=== PATIENT | female | born 1955 | race Caucasian/White ===

== ENCOUNTER 2017-02-19 09:37 | Emergency (ER) | payer OTHER ==
[2017-02-19 09:46] VITALS: TEMP 98; BMI 22.7
--- NOTE | 2017-02-19 10:04 | PDOC ---
History of Present Illness - General History Source: Patient Exam Limitations: No Limitations - History of Present Illness Initial Comments: 02/19/17 11:42 The patient is a 61 year old female, with significant past medical history of Afib (noncompliant with Xarelto), HTN (noncompliant with Lopressor over the past week), and alcohol abuse, who presents to the emergency room with palpitations and tremors s/p drinking the past 3 days. She reports drinking 1/ 5th of a bottle of vodka daily for the last 3 days. Her last drink was last night. She reports that she usually has 4 shots of vodka a day for the past 10 years, but really over did it the past 3 days because of increased family stress. This morning she took a dose of xarelto to see if it would help with the palpitations. She is not compliant with her lopressor because she did not pickling grader her refill at the pharmacy. Has no hx of hospitalizations for etoh withdrawal. Denies chest pain, cough, SOB. Denies LOC. Denies fever, chills, nausea, vomiting. PCP: Dr. Taryn Farmer Middleware Administrator: Dr. Martínez <Irais Mahmood - Last Filed: 02/19/17 12:50> <Alejandro Smith - Last Filed: 02/19/17 20:26> - General Chief Complaint: Tremors Stated Complaint: PALPITATIONS, (POSSIBLE INTOX) Time Seen by Provider: 02/19/17 09:52 Past History <Irais Mahmood - Last Filed: 02/19/17 12:50> - Past Medical History Anemia: No Asthma: No Cancer: No Cardiac Disorders: No CVA: No COPD: No Dementia: No Diabetes: No Dialysis: No GI Disorders: No Disorders: No HTN: Yes Hypercholesterolemia: No Kidney Stones: No Liver Disease: No Psychiatric Problems: Yes (depression) Seizures: No Thyroid Disease: No - Surgical History Abdominal Surgery: No Appendectomy: No Cardiac Surgery: No Cholecystectomy: No Lung Surgery: No Neurologic Surgery: No - Immunization History Td Vaccination: Yes TDAP Vaccination: No Immunization Up to Date: Yes - Suicide/Smoking/Psychosocial Hx Smoking Status: No Smoking History: Never smoked Years of Tobacco Use: 0 Number of Cigarettes Smoked Daily: 0 Cigars Per Day: 0 Hx Alcohol Use: Yes (DAILY VODKA) Drug/Substance Use Hx: No Substance Use Type: Alcohol <Alejandro Smith - Last Filed: 02/19/17 20:26> - Past Medical History Allergies/Adverse Reactions: Allergies Allergy/AdvReac Type Severity Reaction Status Date / Time No Known Allergies Allergy Verified 02/19/17 09:45 Home Medications: Ambulatory Orders Citalopram Hydrobromide [Celexa -] 40 mg PO DAILY 12/04/12 Metoprolol Tartrate [Lopressor -] 100 mg PO BID 12/04/12 Chlorthalidone 25 mg PO DAILY 02/19/16 Losartan Potassium [Cozaar] 100 mg PO DAILY 02/19/16 Review of Systems - Review of Systems Able to Perform ROS?: Yes Comments:: 02/19/17 11:42 GENERAL/CONSTITUTIONAL: No fever or chills. No weakness. HEAD, EYES, EARS, NOSE AND THROAT: No change in vision. No ear pain or discharge. No sore throat. GASTROINTESTINAL: No nausea, vomiting, diarrhea or constipation. GENITOURINARY: No dysuria, frequency, or change in urination. CARDIOVASCULAR: +palpitations. No chest pain or shortness of breath. RESPIRATORY: No cough, wheezing, or hemoptysis. MUSCULOSKELETAL: No joint or muscle swelling or pain. No neck or back pain. SKIN: No rash NEUROLOGIC: +tremors. No headache, vertigo, loss of consciousness, or change in strength/sensation. ENDOCRINE: No increased thirst. No abnormal weight change. HEMATOLOGIC/LYMPHATIC: No anemia, easy bleeding, or history of blood clots. ALLERGIC/IMMUNOLOGIC: No hives or skin allergy. <Irais Mahmood - Last Filed: 02/19/17 12:50> *Physical Exam - Vital Signs Last Vital Signs Temp Pulse Resp BP Pulse Ox 98.0 F 100 H 18 174/129 100 02/19/17 09:39 02/19/17 11:06 02/19/17 11:06 02/19/17 11:06 02/19/17 11:06 - Physical Exam Comments: 02/19/17 11:43 GENERAL: Awake, alert, and fully oriented, in no acute distress, +tremulous HEAD: No signs of trauma EYES: PERRLA, EOMI, sclera anicteric, conjunctiva clear ENT: Auricles normal inspection, hearing grossly normal, nares patent, oropharynx clear without exudates. Moist mucosa + tongue fasiculations NECK: Normal ROM, supple, no lymphadenopathy, JVD, or masses LUNGS: Breath sounds equal, clear to auscultation bilaterally. No wheezes, and no crackles HEART: +Irregularly irregular, tachy to 140, normal S1 and S2, no murmurs, rubs or gallops ABDOMEN: Soft, nontender, normoactive bowel sounds. No guarding, no rebound. No masses EXTREMITIES: Normal range of motion, no edema. No clubbing or cyanosis. No cords, erythema, or tenderness BACK: No midline spinal tendernes in cervial/throacic/lumbar region NEUROLOGICAL: Normal speech, cranial nerves intact, negative pronator drift, 5/ 5 strength in all 4 extremities, normal sensation to light touch in all 4 extremities, normal cerebellar exam, normal gait, normal reflexes and tone SKIN: Warm, Dry, normal turgor, no rashes or lesions noted. <Irais Mahmood - Last Filed: 02/19/17 12:50> - Vital Signs Last Vital Signs Temp Pulse Resp BP Pulse Ox 98.0 F 137 H 20 161/128 100 02/19/17 09:39 02/19/17 09:39 02/19/17 09:39 02/19/17 09:39 02/19/17 09:39 <Alejandro Smith - Last Filed: 02/19/17 20:26> Heart Score/ECG Review #1 02/19/17 20:19 EKG 1: Afib, rate 141, normal axis, 1mm GENARO in AVR likely rate dependent 02/19/17 20:20 EKG 2: Afib, rate 81, normal axis, no GENARO or TWI <Alejandro Smith - Last Filed: 02/19/17 20:26> ED Treatment Course - LABORATORY CBC & Chemistry Diagram: 02/19/17 10:30 02/19/17 10:05 - ADDITIONAL ORDERS Additional order review: Laboratory Results 02/19/17 02/19/17 02/19/17 10:30 10:19 10:05 PT with INR 13.00 H INR 1.18 H PTT (Actin FS) 36.3 H D Sodium 136 Potassium 4.3 D Chloride 100 Carbon Dioxide 27 Anion Gap 9 BUN 10 D Creatinine 0.6 Creat Clearance w eGFR > 60 Random Glucose 103 D Calcium 9.5 D Magnesium 1.1 L D Total Bilirubin 1.5 H AST 38 H ALT 42 Alkaline Phosphatase 77 Troponin I < 0.02 B-Natriuretic Peptide 2479.21 H Total Protein 7.8 Albumin 4.2 Lipase 116 TSH 3.60 D 02/19/17 10:30 RBC 5.26 H MCV 91.6 MCHC 33.9 RDW 12.7 MPV 7.1 L Neutrophils % 73.8 Lymphocytes % 17.0 Monocytes % 7.7 Eosinophils % 0.8 D Basophils % 0.7 - RADIOLOGY Radiograph Interpretation: 02/19/17 11:53 EXAM#: TYPE/EXAM: RESULT: [id number] RAD/CHEST X-RAY PORTABLE* Chest: Palpitations. Since 02/19/2016 at 0830 hours, the patient is in an apical lordotic projection with clear lungs, normal mediastinum and sharp angles. Soft tissues are intact and there are some degenerative changes. There is no sign of a pneumoperitoneum. Incidental note is made of possible old trauma involving the right ninth rib in the axillary line. Impression: No acute chest pathology. Possible old right rib trauma. Reported By: Marek Boo MD 02/19/17 1131 - Medications Given in the ED: ED Medications Discontinued Medications Generic Name Dose Route Start Last Admin Trade Name Freq PRN Reason Stop Dose Admin Chlordiazepoxide HCl 25 mg 02/19/17 10:06 02/19/17 10:39 Librium - PO 02/19/17 10:07 25 mg ONCE ONE Administration Metoprolol Tartrate 5 mg 02/19/17 10:06 02/19/17 10:39 Lopressor Injection - IVPUSH 02/19/17 10:07 5 mg ONCE ONE Administration Metoprolol Tartrate 100 mg 02/19/17 11:15 02/19/17 11:25 Lopressor - PO 02/19/17 11:16 100 mg ONCE ONE Administration <Irais Mahmood - Last Filed: 02/19/17 12:50> - LABORATORY CBC & Chemistry Diagram: 02/19/17 10:30 02/19/17 10:05 <Alejandro Smith - Last Filed: 02/19/17 20:26> Medical Decision Making - Medical Decision Making 02/19/17 12:50 Dr. Farmer was paged at the office at 12:51pm. Awaiting call back. <Irais Mahmood - Last Filed: 02/19/17 12:50> - Critical Care Time Total Critical Care Time (minutes): 30 Critical Care Statement: The care of this patient involved high complexity decision making to prevent further life threatening deterioration of the patient 's condition and/or to evaluate & treat vital organ system(s) failure or risk of failure. - Medical Decision Making 02/19/17 12:52 61yo F hx HTN, AF on zarelto p/w palpitations and tremors since yesterday. HR initially 140s in AF w RVR and hypertensive due to med non-compliance. 02/19/17 17:[address] Farmer <Alejandro Smith - Last Filed: 02/19/17 20:26> *DC/Admit/Observation/Transfer - Attestations Scribe Attestion: 02/19/17 11:43 Documentation prepared by ELLIS Gates, acting as medical clerk for Alejandro Smith MD. <Irais Mahmood - Last Filed: 02/19/17 12:50> - Discharge Dispostion Admit: No - Attestations Physician Attestion: 02/19/17 16:59 I, Dr. Alejandro Smith MD, attest that this document has been prepared under my direction and personally reviewed by me in its entirety. I further attest, that it accurately reflects all work, treatment, procedures and medical decision -making performed by me. <Alejandro Smith - Last Filed: 02/19/17 20:26> Diagnosis at time of Disposition: Atrial fibrillation with RVR - Referrals Referrals: Taryn Farmer MD [Primary Care Provider] - - Patient Instructions Printed Discharge Instructions: DI for Alcohol Abuse Additional Instructions: Please pickling grader your medications from the pharmacy and take them as prescribed. Dr. Farmer will be calling you tonight to check in on you. She also expects you in the office this Friday02/21/17. Try to cut down on drinking alcohol. Return to the emergency department immediately if you have any new, worsening, or concerning symptoms.
[2017-02-19] MEDS ORDERED: chlordiazePOXIDE HCL 25 MG CAPSULE PO ONE (10:06)
[2017-02-19] MEDS ORDERED: METOPROLOL TARTRATE 5 MG/5 ML VIAL IVPUSH ONE (10:06)
[2017-02-19] MEDS ORDERED: METOPROLOL TARTRATE 5 MG/5 ML VIAL ONE (10:22)
[2017-02-19] MEDS ORDERED: chlordiazePOXIDE HCL 25 MG CAPSULE ONE (10:22)
[2017-02-19 10:42] LABS: BASOPHIL 0.7 % (0-2.0); EOSINOPHIL 0.8 % (0-4.5); MCH 31.1 pg (25.7-33.7); MCHC 33.9 g/dl (32.0-36.0); MEAN CELL VOLUME 91.6 fl (80-96); MEAN PLT VOLUME 7.1 fl (7.5-11.1); NEUTROPHILS 73.8 % (42.8-82.8); PLATELET COUNT 291 K/MM3 (134-434); RDW 12.7 % (11.6-15.6); WHITE BLOOD COUNT 11.4 K/mm3 (4.0-10.0)
[2017-02-19 11:00] LABS: INR 1.18 (0.82-1.09)
[2017-02-19 11:02] LABS: ACTIVATED PTT 36.3 SECONDS (26.9-34.4)
[2017-02-19] MEDS ORDERED: METOPROLOL TARTRATE 50 MG TABLET (FP) PO ONE (11:15)
[2017-02-19] MEDS ORDERED: METOPROLOL TARTRATE 50 MG TABLET (FP) ONE (11:23)
[2017-02-19 11:26] LABS: ALBUMIN 4.2 g/dl (3.4-5.0); ANION GAP 9 (8-16); BILIRUBIN,TOTAL 1.5 mg/dL (0.2-1.0); CALCIUM 9.5 mg/dL (8.5-10.1); CO2 27 mmol/L (21-32); CREATININE 0.6 mg/dL (0.55-1.02); GLUCOSE,RANDOM 103 mg/dL (74-106); SGPT/ALT 42 U/L (12-78); TOT PROT 7.8 g/dl (6.4-8.2)
[2017-02-19 11:35] LABS: ALK PHOS 77 U/L (45-117); TROPONIN I < 0.02 ng/ml (0.00-0.05)
[2017-02-19 11:36] LABS: MAGNESIUM 1.1 mg/dL (1.8-2.4)
[2017-02-19 11:37] LABS: SGOT/AST 38 U/L (15-37)
--- NOTE | 2017-02-19 12:13 | EKG ---
Test Reason : Blood Pressure : / mmHG Vent. Rate : 141 BPM Atrial Rate : 156 BPM P-R Int : 000 ms QRS Dur : 072 ms QT Int : 298 ms P-R-T Axes : 000 033 066 degrees QTc Int : 456 ms ATRIAL FIBRILLATION WITH RAPID VENTRICULAR RESPONSE MARKED ST ABNORMALITY, POSSIBLE INFERIOR SUBENDOCARDIAL INJURY ABNORMAL ECG WHEN COMPARED WITH ECG OF 20-FEB-2016 10:53, ATRIAL FIBRILLATION HAS REPLACED SINUS RHYTHM VENT. RATE HAS INCREASED BY [address] NOW DEPRESSED IN INFERIOR LEADS ST NOW DEPRESSED IN ANTEROLATERAL LEADS T WAVE INVERSION NOW EVIDENT IN LATERAL LEADS Confirmed by NIRU FOX MD ([id number]) on 02/19/2017 12:12:48 PM Referred By: Confirmed By:NIRU FOX MD
[2017-02-19 12:22] LABS: URINE APPEARANCE CLEAR; URINE BILIRUBIN NEGATIVE (NEGATIVE); URINE BLOOD 1+ (NEGATIVE); URINE COLOR STRAW; URINE GLUCOSE (UA) NEGATIVE (NEGATIVE); URINE KETONE TRACE (NEGATIVE); URINE LEUK ESTERASE NEGATIVE (NEGATIVE); URINE NITRITE NEGATIVE (NEGATIVE); URINE PROTEIN NEGATIVE (NEGATIVE); URINE UROBILINOGEN NEGATIVE mg/dL (0.2-1.0)
[2017-02-19 12:31] LABS: URINE RBC <1 /hpf (0-3); URINE WBC 1 /hpf (3-5)
[2017-02-19] MEDS ORDERED: LOSARTAN POTASSIUM 50 MG TABLET (FP) PO ONE (12:49)
[2017-02-19] MEDS ORDERED: LOSARTAN POTASSIUM 25 MG TABLET ONE (13:09)
[2017-02-19] MEDS ORDERED: MAGNESIUM SULF 50% (8.12 MEQ/2 ML-1 GM VIAL) IVPB ONE (15:15)
[2017-02-19] MEDS ORDERED: MAGNESIUM SULF 50% (8.12 MEQ/2 ML-1 GM VIAL) ONE (15:27)
[2017-02-19 17:11] VITALS: BP 147/90; PULSE 73
== END 2017-02-19 17:28 | disposition home or self-care (01) ==
LOC: JER 09:37
PROC: 3E033GC Introduction of Other Therapeutic Substance into Peripheral Vein, Percutaneous Approach (ICD-10-PCS; principal; 2017-02-19)
DX: I48.91 Unspecified atrial fibrillation (principal); Z79.01 Long term (current) use of anticoagulants; I10 Essential (primary) hypertension; F32.9 Major depressive disorder, single episode, unspecified
CPT/HCPCS: 36415; 71010-TC; 80053; 81003; 81015; 83690; 83735; 83880; 84443; 84484; 85025; 85610; 85730; 87086; 93005; 93010; 99284-25

== ENCOUNTER 2018-04-18 22:45 | Emergency (ER) | payer OTHER ==
[2018-04-18 23:12] VITALS: BP 125/68; PULSE 79; TEMP 99.1; BMI 22.5
--- NOTE | 2018-04-18 23:15 | PDOC ---
History of Present Illness <Fiorella Padilla - Last Filed: 04/19/18 00:38> - General History Source: Patient Exam Limitations: No Limitations - History of Present Illness Initial Comments: 04/19/18 00:10 62 F with a hx of asthma (hx of intubation 20 years ago), afib (on xarelto), and HTN presents to the emergency department with SOB for the past 4 days. Per the patient, she states she has been using her ventolin more frequently (3x/day 2 pumps each administration). She states that she has been having worsening SOB , but denies chest pain, diaphoresis, chest pain with exertion, and nausea/ vomiting. Her SOB does worsen with weather changes. Prior to arrival, she was at a green party and endorses alcohol drinking and exposure to noxious perfume smells that have a hx of triggering an asthma exacerbation. Denies the following: fever , chills, visual changes, abdominal pain, dysuria, hematuria, diarrhea, melena, hematochezia, and leg pain/swelling. PMD: Dr. Farmer <Deny Alanis - Last Filed: 04/20/18 06:28> - General Chief Complaint: Shortness of Breath Stated Complaint: DIFFICULTY BREATHING Time Seen by Provider: 04/18/18 23:15 Past History <Fiorella Padilla - Last Filed: 04/19/18 00:38> - Past Medical History Anemia: No Asthma: No Cancer: No Cardiac Disorders: Yes (atrial fibrillation) CVA: No COPD: No Dementia: No Diabetes: No Dialysis: No GI Disorders: No Disorders: No HTN: Yes Hypercholesterolemia: No Kidney Stones: No Liver Disease: No Psychiatric Problems: Yes (depression) Seizures: No Thyroid Disease: No - Surgical History Abdominal Surgery: No Appendectomy: No Cardiac Surgery: No Cholecystectomy: No Lung Surgery: No Neurologic Surgery: No - Immunization History Td Vaccination: Yes TDAP Vaccination: No Immunization Up to Date: Yes - Suicide/Smoking/Psychosocial Hx Smoking Status: No Smoking History: Never smoked Years of Tobacco Use: 0 Number of Cigarettes Smoked Daily: 0 Cigars Per Day: 0 Hx Alcohol Use: Yes Drug/Substance Use Hx: No Substance Use Type: Alcohol <Deny Alanis - Last Filed: 04/20/18 06:28> - Past Medical History Allergies/Adverse Reactions: Allergies Allergy/AdvReac Type Severity Reaction Status Date / Time No Known Allergies Allergy Verified 04/18/18 22:56 Home Medications: Ambulatory Orders Citalopram Hydrobromide [Celexa -] 40 mg PO DAILY 12/04/12 Metoprolol Tartrate [Lopressor -] 100 mg PO BID 12/04/12 Chlorthalidone 25 mg PO DAILY 02/19/16 Losartan Potassium [Cozaar] 100 mg PO DAILY 02/19/16 Review of Systems - Review of Systems Able to Perform ROS?: Yes Is the patient limited Macedonian proficient: No Constitutional: No: Chills, Diaphoresis, Fever, Weakness HEENTM: No: Recent change in vision, Nose Pain, Throat Pain, Throat Swelling, Mouth Pain, Mouth Swelling Respiratory: Yes: Shortness of Breath, SOB at Rest. No: Cough, Hemoptysis Cardiac (ROS): No: Chest Pain, Lightheadedness, Palpitations, Syncope, Chest Tightness ABD/GI: No: Constipated, Diarrhea, Nausea, Rectal Bleeding, Vomiting, Abdominal cramping, Tarry Stools : No: Burning, Dysuria, Hematuria Musculoskeletal: No: Back Pain Integumentary: No: Erythema, Pruritus, Rash Neurological: No: Headache, Numbness, Paresthesia, Weakness, Unsteady Gait Psychiatric: No: Stressors Endocrine: No: Unexplained Weight Loss Hematologic/Lymphatic: No: Anemia <Deny Alanis - Last Filed: 04/20/18 06:28> *Physical Exam - Vital Signs Last Vital Signs Temp Pulse Resp BP Pulse Ox 99.1 F 79 20 125/68 99 04/18/18 22:56 04/18/18 22:56 04/18/18 22:56 04/18/18 22:56 04/18/18 22:56 <Fiorella Padilla - Last Filed: 04/19/18 00:38> - Vital Signs Last Vital Signs Temp Pulse Resp BP Pulse Ox 99.1 F 79 20 125/68 99 04/18/18 22:56 04/18/18 22:56 04/18/18 22:56 04/18/18 22:56 04/18/18 22:56 - Physical Exam General Appearance: Yes: Nourished, Appropriately Dressed HEENT: positive: EOMI, KAUSHIK, Normal Voice, Symmetrical, Pharynx Normal. negative: Tonsillar Erythema, Sinus Tenderness Neck: positive: Trachea midline. negative: Lymphadenopathy (R), Lymphadenopathy (L) Respiratory/Chest: positive: Other (bilateral expiratory wheezes mild. Decreased breath sounds bilaterally in upper and lower lung gan). negative: Chest Tender, Respiratory Distress, Accessory Muscle Use Cardiovascular: positive: Regular Rhythm, Regular Rate, S1, S2. negative: Systolic Murmur Gastrointestinal/Abdominal: positive: Normal Bowel Sounds, Flat, Soft. negative : Tender Musculoskeletal: positive: Normal Inspection. negative: CVA Tenderness Extremity: positive: Normal Capillary Refill, Normal Inspection, Normal Range of Motion. negative: Tender Integumentary: positive: Normal Color, Dry, Warm Neurologic: positive: Fully Oriented, Alert, Normal Mood/Affect, Motor Strength 5/5 <Deny Alanis - Last Filed: 04/20/18 06:28> ED Treatment Course - LABORATORY CBC & Chemistry Diagram: 04/19/18 00:03 04/19/18 00:03 - ADDITIONAL ORDERS Additional order review: 04/19/18 00:03 RBC 4.08 MCV 93.1 MCHC 34.2 RDW 12.9 MPV 7.1 L Neutrophils % 55.7 D Lymphocytes % 33.7 D Monocytes % 3.9 Eosinophils % 5.6 H D Basophils % 1.1 - Medications Given in the ED: ED Medications Discontinued Medications Generic Name Dose Route Start Last Admin Trade Name Freq PRN Reason Stop Dose Admin Albuterol/Ipratropium 3 amp 04/18/18 23:43 04/19/18 00:02 Duoneb - NEB 04/18/18 23:44 3 amp ONCE ONE Administration <Fiorella Padilla - Last Filed: 04/19/18 00:38> - LABORATORY CBC & Chemistry Diagram: 04/19/18 00:03 04/19/18 00:03 <Deny Alanis - Last Filed: 04/20/18 06:28> Medical Decision Making - Medical Decision Making 04/19/18 00:15 62 F with a hx of asthma (hx of intubation 20 years ago), afib (on xarelto), and HTN presents to the emergency department with SOB for the past 4 days. Initial vitals Initial Vital Signs Temp Pulse Resp BP Pulse Ox 99.1 F 79 20 125/68 99 04/18/18 22:56 04/18/18 22:56 04/18/18 22:56 04/18/18 22:56 04/18/18 22:56 Work up ddx: asthma exacerbation vs COPD exacerbation vs PNA vs URI vs pleuritis vs ACS vs pericardial effusion vs pericarditis cbc, cmp, trops, EKG, CXR, treatment: 3 amps of duoneb. received dexamethasone 10 mg via EMS. Laboratory Tests 04/19/18 04/19/18 00:03 00:03 WBC 5.5 RBC 4.08 Hgb 13.0 Hct 38.0 D MCV 93.1 MCH 31.9 MCHC 34.2 RDW 12.9 Plt Count 239 MPV 7.1 L Absolute Neuts (auto) 3.1 Neutrophils % 55.7 D Lymphocytes % 33.7 D Monocytes % 3.9 Eosinophils % 5.6 H D Basophils % 1.1 Nucleated RBC % 0 Sodium 142 Potassium 4.0 Chloride 105 Carbon Dioxide 27 Anion Gap 11 BUN 12 Creatinine 0.8 Creat Clearance w eGFR > 60 Random Glucose 92 Calcium 9.2 Total Bilirubin 0.4 AST 31 ALT 44 Alkaline Phosphatase 73 Creatine Kinase 65 Troponin I < 0.02 Total Protein 7.3 Albumin 3.8 Pt is refusing to have the CXR done. Pt was persistent on leaving AMA. We were able to have her agreeable to a breathing treatment. She received dexamethasone via EMS. The patient was reassessed after duoneb treatment and has bilateral breath sounds clear to auscultation with minimal expiratory wheezes. The patient asked to be discharged. We gave strict return precautions and to have her follow up with her PMD. She understood the plan and agreed to it. Dispo: Discharge. <Deny Alanis - Last Filed: 04/20/18 06:28> *DC/Admit/Observation/Transfer <Fiorella Padilla - Last Filed: 04/19/18 00:38> - Discharge Dispostion Decision to Admit order: No <Deny Alanis - Last Filed: 04/20/18 06:28> Diagnosis at time of Disposition: Asthma Qualifiers: Asthma severity: unspecified severity Asthma persistence: unspecified Asthma complication type: unspecified Qualified Code(s): J45.909 - Unspecified asthma, uncomplicated - Discharge Dispostion Disposition: HOME - Referrals Referrals: Taryn Farmer MD [Primary Care Provider] - - Patient Instructions Printed Discharge Instructions: DI for Shortness of Breath Additional Instructions: You were seen in the emergency department for your shortness of breath. You were given a breathing treatment and labs were drawn. You did refuse to have the chest xray done. Please follow up with your primary medical doctor within 24 -48 hours after discharge from the hospital for follow up care and management. Please return to the emergency department if you have worsening SOB, chest pain , profuse sweating, nausea and vomiting, and acute onset of weakness. Thank you.
[2018-04-18] MEDS ORDERED: ALBUTEROL SO4 2.5/IPRATROPIUM 0.5 INH SOL 3 ML VIAL.NEB. NEB ONE ×2 (23:43→23:48)
[2018-04-19 00:11] LABS: BASO % 1.1 % (0-2.0); EOS % 5.6 % (0-4.5); LYMPH % 33.7 % (8-40); MCH 31.9 pg (25.7-33.7); MCHC 34.2 g/dl (32.0-36.0); MEAN CELL VOLUME 93.1 fl (80-96); MEAN PLT VOLUME 7.1 fl (7.5-11.1); MONO % 3.9 % (3.8-10.2); NEUT % 55.7 % (42.8-82.8); PLATELET COUNT 239 K/MM3 (134-434); RBC 4.08 M/mm3 (3.60-5.2); RDW 12.9 % (11.6-15.6); WHITE BLOOD COUNT 5.5 K/mm3 (4.0-10.0)
--- NOTE | 2018-04-19 00:15 | PDOC ---
Attending Attestation - HPI HPI: 04/19/18 00:16 The patient is a 62-year-old female with past medical history significant for Asthma (with intubation 20 years ago), HTN, and Afib (on Xarelto) presents to the emergency department with shortness of breath. The patient was at a republic[employer] with her brother when she became short of breath. The patient reports shes been short of breath for the past 4 days thats been progressively worsening. EMS gave the patient Decadron en route to the ER. Denies fever, chills, chest pain, abdominal pain, urinary symptoms or changes in bowel habits. Allergies: NKA PCP: Dr. Taryn Farmer <Tammi Felix - Last Filed: 04/19/18 00:15> - Resident Resident Name: Deny Alanis - ED Attending Attestation I have performed the following: I have examined & evaluated the patient, The case was reviewed & discussed with the resident, I agree w/resident's findings & plan - Physicial Exam PE: 04/19/18 00:26 Agree with resident exam. Pt has diffuse expiratory wheeze, however, she has improved breathing after she received decadron in the ambulance en route to the ER. Pt is afebrile. She is able to speak with full sentences. - Medical Decision Making 04/19/18 00:27 Labs normal. Exam improved with meds in the ER. Pt refusing CXR. EKG: Pt is stable for d/c home. <Fiorella Padilla - Last Filed: 04/19/18 01:03> Heart Score/ECG Review - ECG Intrepretation Rhythm: Regular Rhythm - Milton Milton: Normal - P and AK Prolonged AK Interval: 1st Degree Block(>20mils) Delta Wave(s) Present: No WPW: No - ST and T Early Repolarization: No Non Specific ST-T Wave changes: No Flattened T Waves: No Prolonged Q-T Interval: No - ECG Impressions Normal ECG: Yes Non-specific ST Elevation: No Ischemic Changes: No Torsades elsie Pointes: No WPW: No <Fiorella Padilla - Last Filed: 04/19/18 01:03>
[2018-04-19 00:51] LABS: ALBUMIN 3.8 g/dl (3.4-5.0); ALK PHOS 73 U/L (45-117); ANION GAP 11 MMOL/L (8-16); BILIRUBIN,TOTAL 0.4 mg/dL (0.2-1); BLOOD UREA NITROGEN 12 mg/dL (7-18); CALCIUM 9.2 mg/dL (8.5-10.1); CHLORIDE 105 mmol/L (98-107); CO2 27 mmol/L (21-32); CREATININE 0.8 mg/dL (0.55-1.3); GLUCOSE,RANDOM 92 mg/dL (74-106); SGOT/AST 31 U/L (15-37); SGPT/ALT 44 U/L (13-61); SODIUM 142 mmol/L (136-145); TOT PROT 7.3 g/dl (6.4-8.2)
== END 2018-04-19 01:00 | disposition home or self-care (01) ==
LOC: JER 22:45
PROC: 3E0F7GC Introduction of Other Therapeutic Substance into Respiratory Tract, Via Natural or Artificial Opening (ICD-10-PCS; principal; 2018-04-18)
DX: J45.909 Unspecified asthma, uncomplicated (principal); I10 Essential (primary) hypertension; I48.91 Unspecified atrial fibrillation; Z79.01 Long term (current) use of anticoagulants
CPT/HCPCS: 36415; 80053; 82550; 84484; 85025; 99282-25

== ENCOUNTER 2020-05-31 12:31 | Emergency (ER) | payer OTHER ==
[2020-05-31 12:39] VITALS: TEMP 97.9; BMI 23.5
[2020-05-31 13:12] VITALS: PULSE 91
[2020-05-31] MEDS ORDERED: LABETALOL HCL 5 MG/1 ML (100MG/20 ML VIAL) IVPUSH ONE (13:54)
[2020-05-31] MEDS ORDERED: METOCLOPRAMIDE HCL INJECTION 10 MG/2 ML VIAL IVPUSH ONE (13:54)
[2020-05-31] MEDS ORDERED: LABETALOL HCL 5 MG/1 ML (200MG/40ML VIAL) IVPB ONE (14:03)
[2020-05-31] MEDS ORDERED: METOCLOPRAMIDE HCL INJECTION 10 MG/2 ML VIAL ONE (14:03)
[2020-05-31 14:38] LABS: BASO % 0.6 % (0-2.0); EOS % 1.2 % (0-4.5); HEMATOCRIT 41.9 % (32.4-45.2); HEMOGLOBIN 14.2 GM/dL (10.7-15.3); LYMPH % 17.5 % (8-40); MCH 32.2 pg (25.7-33.7); MCHC 33.8 g/dl (32.0-36.0); MEAN CELL VOLUME 95.1 fl (80-96); MEAN PLT VOLUME 7.6 fl (7.5-11.1); MONO % 6.4 % (3.8-10.2); NEUT % 74.3 % (42.8-82.8); PLATELET COUNT 252 K/MM3 (134-434); RDW 13.6 % (11.6-15.6); WHITE BLOOD COUNT 7.6 K/mm3 (4.0-10.0)
[2020-05-31 14:46] LABS: INR 1.14 (0.83-1.09); PROTHROMBIN TIME (PATIENT) 13.7 SEC (9.7-13.0)
[2020-05-31 14:48] LABS: ACTIVATED PTT 31.5 SECONDS (25.2-36.5)
[2020-05-31] MEDS ORDERED: LABETALOL HCL 100 MG TABLET (FP) PO ONE (14:56)
[2020-05-31] MEDS ORDERED: LABETALOL HCL 100 MG TABLET (FP) ONE (15:04)
[2020-05-31 15:07] LABS: CALCIUM 9.5 mg/dL (8.5-10.1)
[2020-05-31 15:08] LABS: BLOOD UREA NITROGEN 10.2 mg/dL (7-18); CO2 30 mmol/L (21-32); GLUCOSE,RANDOM 91 mg/dL (74-106); MAGNESIUM 1.5 mg/dL (1.8-2.4)
[2020-05-31 15:11] LABS: CREATININE 0.8 mg/dL (0.55-1.3); SGOT/AST 38 U/L (15-37); SGPT/ALT 58 U/L (13-61)
[2020-05-31 15:12] LABS: BILIRUBIN,TOTAL 1.3 mg/dL (0.2-1); TOT PROT 7.2 g/dl (6.4-8.2)
[2020-05-31 15:14] LABS: ALK PHOS 79 U/L (45-117)
[2020-05-31 16:01] LABS: ANION GAP 10 MMOL/L (8-16); CHLORIDE 103 mmol/L (98-107); SODIUM 140 mmol/L (136-145)
[2020-05-31 16:34] VITALS: BP 146/95
== END 2020-05-31 18:00 | disposition left against medical advice (07) ==
LOC: JER 12:31
PROC: 3E033GC Introduction of Other Therapeutic Substance into Peripheral Vein, Percutaneous Approach (ICD-10-PCS; principal; 2020-05-31)
PROC: 3E033GC Introduction of Other Therapeutic Substance into Peripheral Vein, Percutaneous Approach (ICD-10-PCS; 2020-05-31)
PROC: 3E033GC Introduction of Other Therapeutic Substance into Peripheral Vein, Percutaneous Approach (ICD-10-PCS; 2020-05-31)
DX: H81.10 Benign paroxysmal vertigo, unspecified ear (principal); I10 Essential (primary) hypertension
CPT/HCPCS: 36415; 70450-TC; 71045-TC-FY; 80053; 82550; 82553; 83735; 83880; 84484; 85025; 85610; 85730; 93005; 93010; 99285-25